=== PATIENT | male | born 1950 | race Caucasian/White ===

== ENCOUNTER 2016-09-04 17:46 | Emergency (ER) | payer OTHER, MEDICARE ==
[~2016-09-04] VITALS: Ht 162.6 cm; Wt 90.7 kg
[~2016-09-04 17:46] MED LIST: CALCIUM 600 +1 EA12 PO; CLONIDINE HCL0.2 M1 PO; CLOTRIMAZOLE/BE1 CRE TOP; DOCU-LIQUI150 MG/15 PO; ECONAZOLE NITRATE11 TOP; FEXOFENADINE HC60 MG PO; KEFLEX500 M1 PO; MELOXICAM7.5 M1 PO; OMEPRAZOLE20 M2 PO; PHENOBARBITAL32.4 M1 PO; PROLIA60 MG/1 ML SC; ZITHROMAX Z-PA250 M1 PO
--- NOTE | 2016-09-04 19:40 | ED MVC/FALL/TRAUMA COMPLAINT ---
History of Present Illness General Chief Complaint: General Adult Stated Complaint: UNSTEADY GAIT;BRUISE ON BACK Source: LEGAL MANAGER Exam Limitations: physical impairment Vital Signs & Intake/Output Vital Signs & Intake/Output Vital Signs Date Time Temp Pulse Resp B/P B/P Pulse O2 O2 Flow FiO2 Mean Ox Delivery Rate 09/04 2126 97 Room Air 09/05 2051 97.2 16 146/83 09/04 1809 98.1 84 22 145/94 Room Air Allergies Coded Allergies: MDX - Haloperidol (From HALDOL) (UNKOWN 04/11/15) MDX - Phenothiazine (PHENOTHIAZINE) (UNKNOWN 04/11/15) Uncoded Allergies: THORAZINE (01/19/15) Reconcile Medications CALCIUM CARBONATE/VITAMIN D3 (Calcium 600 + Vit D Tablet) 600 MG/400 IU TAB 1 TAB PO BID SUPPLEMENT (Reported) Cephalexin (Keflex) 500 MG CAPSULE 1 CAP PO BID CELLULITIS CLONIDINE HCL (Clonidine) 0.2 MG TABLET 1 TAB PO BID UNKNOWN (Reported) CLOTRIMAZOLE/BETAMETHASONE DIP (Clotrimazole-Betamethasone Crm) 1 %-0.05 % CREAM..G. 1 BROOKE TOP BID PRN RED/RASHY AREA (Reported) Denosumab (Prolia) 60 MG/ML SYRINGE 1 ML SC Q 6 MONTHS BONE HEALTH (Reported) Docusate Sodium (Docu-Liquid) 50 MG/5 ML LIQUID CONSTIPATION (Reported) Econazole Nitrate 1 % CREAM..G. 1 BROOKE TOP QPM FEET (Reported) Fexofenadine Hydrochloride (Fexofenadine HCl) 60 MG TAB 1 TAB PO BID UNKNOWN (Reported) Meloxicam 7.5 MG TABLET 1 TAB PO DAILY UNKNOWN (Reported) Omeprazole 20 MG CAPSULE.DR 1 CAP PO DAILY GI (Reported) Phenobarbital 32.4 MG TABLET 1 TAB PO QPM UNKNOWN (Reported) Triage Note: PT IS FROM [facility] PER TIP LENGTH CHECKER PT SLIPPED OUT OF BED A FEW DAYS AGO, HAS BRUISE ON BACK. Triage Nurses Notes Reviewed? yes Onset: Abrupt Duration: constant Timing: recent history Severity: mild Severity Numbers: 1 Injuries/Fall Location: back Method of Injury: direct blow, fall Loss of Consciousness: no loss of consciousness HPI: PATIENT IS A 66-YEAR-OLD MALE WITH PAST MEDICAL HISTORY OF profound intellectual disability, infantile autism whose history is limited due to past medical history which patient lives in a prison in which the qc analyst presents patient to the emergency room for concerns of fall off his bed where they noted the fall was witnessed 2-3 days ago where today they saw the patient has a skin abrasion to the thoracic region of his back. Caregiver Denies any pain patient has normal steady gait No bleeding has occurred No medications given for symptoms. Patient was requested to be evaluated (BRAYAN MEDINA) Past History Travel History Traveled to [place] past 21 day No Medical History Any Pertinent Medical History? 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 No (BRAYAN MEDINA) Review of Systems Review of Systems Constitutional: Reports: no symptoms. Eyes: Reports: no symptoms. Ears, Nose, Throat, Mouth: Reports: no symptoms. Respiratory: Reports: no symptoms. Cardiovascular: Reports: no symptoms. Gastrointestinal/Abdominal: Reports: no symptoms. Genitourinary: Reports: no symptoms. Musculoskeletal: Reports: see HPI, back pain. Skin: Reports: see HPI. Neurological/Psychological: Reports: no symptoms. All Other Systems: Reviewed and Negative (BRAYAN MEDINA) Physical Exam Physical Exam General Appearance: no apparent distress, alert, comfortable Head: atraumatic Eyes: Bilateral: normal appearance. Ears, Nose, Throat, Mouth: moist mucous membrane Neck: normal inspection, supple, full range of motion, no midline tenderness Respiratory: normal breath sounds, chest non-tender Cardiovascular: regular rate/rhythm Back: evidence of trauma Extremities: normal range of motion Neurologic/Psych: awake Skin: intact Diagram Body: 1) Minimal superficial skin abrasion noted no tenderness noted skin intact Core Measures ACS in differential dx? No Severe Sepsis Present: No Septic Shock Present: No (BRAYAN MEDINA) Progress Differential Diagnosis: aoritic dissection, abd injury, C/T/L spine injury, ext injury, ICH, pelvis injury, pnemothorax, spinal cord injury Plan of Care: Orders Procedure Date/time Status XRY-THORACOLUMBAR SPINE 09/04 1958 Active Patient has no concerns of osseous injury where patient shows the skin abrasion. Patient was ambulated on multiple occasions normal steady gait. The caregiver will transport patient back to [facility] (BRAYAN MEDINA) Diagnostic Imaging: Viewed by Me: Radiology Read. Radiology Impression: no fracture Comments: PATIENT: VILMA MCKNIGHT PRESENT AGE: 66 PATIENT ACCOUNT NO: [id number] : 51 LOCATION: [facility] ORDERING PHYSICIAN: BRAYAN GONGORA SERVICE DATE: 09/04/16 EXAM TYPE: RAD - XRY-THORACOLUMBAR SPINE EXAMINATION: XR THORACOLUMBAR SPINE CLINICAL INFORMATION: Fall COMPARISON: None Findings: Frontal film shows the vertebrae from T7 to L5. Significant scoliosis convex right apex at T10. The lateral film is nondiagnostic. No acute finding seen on the frontal study. Impression: Lateral film is nondiagnostic. Recommend patient return for repeat imaging. Scoliosis on the frontal study. No acute finding on the frontal images from T7 to L5. The mid to upper thoracic vertebrae are not imaged here. (BRAYAN MEDINA) Departure Departure Disposition: HOME OR SELF CARE Condition: Stable Clinical Impression Primary Impression: Skin abrasion Secondary Impressions: Thoracic back pain Referrals: RENETTA BRUEC MD (PCP/Family) Additional Instructions: As discussed follow-up with primary care doctor in 1 week Continue home medications. If symptoms worsen return to emergency room Departure Forms: Customer Survey General Discharge Information (BRAYAN MEDINA) PA/JIRA DEVELOPER Co-Sign Statement Statement: ED Attending supervision documentation- [] I saw and evaluated the patient. I have also reviewed all the pertinent lab results and diagnostic results. I agree with the findings and the plan of care as documented in the PA's/JIRA DEVELOPER's documentation. [X] I have reviewed the ED Record and agree with the PA's/JIRA DEVELOPER's documentation. [] Additions or exceptions (if any) to the PAs/JIRA DEVELOPER's note and plan are summarized below: [] (MARV ALVAREZ,CIRA)
[2016-09-04 20:52] VITALS: BP 146/83
--- NOTE | 2016-09-04 21:17 | RADIOLOGY REPORT ---
EXAMINATION: XR THORACOLUMBAR SPINE CLINICAL INFORMATION: Fall COMPARISON: None Findings: Frontal film shows the vertebrae from T7 to L5. Significant scoliosis convex right apex at T10. The lateral film is nondiagnostic. No acute finding seen on the frontal study. Impression: Lateral film is nondiagnostic. Recommend patient return for repeat imaging. Scoliosis on the frontal study. No acute finding on the frontal images from T7 to L5. The mid to upper thoracic vertebrae are not imaged here.
== END 2016-09-04 21:27 ==
LOC: ERH 17:46
DX: S30.810A Abrasion of lower back and pelvis, initial encounter (principal); M54.6 Pain in thoracic spine; W06.XXXA Fall from bed, initial encounter; Y92.199 Unspecified place in other specified residential institution as the place of occurrence of the external cause; Y93.9 Activity, unspecified
CPT/HCPCS: 72080

== ENCOUNTER 2016-10-23 08:49 | Emergency (ER) | payer OTHER, MEDICARE ==
[2016-10-23 08:53] VITALS: BP 143/91
--- NOTE | 2016-10-23 09:03 | ED UPPER/LOWER EXTREMITY COMPL ---
History of Present Illness General Chief Complaint: Hand or Wrist Injury Stated Complaint: SWELLING TO R HAND-NO KNOWN INJURY Source: AID Exam Limitations: MR/AUTISM Vital Signs & Intake/Output Vital Signs & Intake/Output Vital Signs Date Time Temp Pulse Resp B/P B/P Pulse O2 O2 Flow FiO2 Mean Ox Delivery Rate 10/23 0853 98.0 93 20 143/91 96 Room Air Allergies Coded Allergies: Phenothiazines (UNKNOWN 10/23/16) chlorpromazine (From THORAZINE) (UNKNOWN 10/23/16) haloperidol (From HALDOL) (UNKNOWN 10/23/16) Reconcile Medications Calcium Carbonate/Vitamin D3 (Calcium 600 + Vit D Tablet) 600 MG-400 TABLET 1 TAB PO BID SUPPLEMENT (Reported) Cephalexin (Keflex) 500 MG CAPSULE 1 CAP PO BID CELLULITIS Clonidine HCl 0.2 MG TABLET 1 TAB PO BID UNKNOWN (Reported) Denosumab (Prolia) 60 MG/ML SYRINGE 1 ML SC BONE STRENGTH (Reported) Docusate Sodium (Colace) 100 MG CAPSULE 1 CAP PO BID CONSTIPATION (Reported) Levocetirizine Dihydrochloride 5 MG TABLET 1 TAB PO DAILY ALLERGIES (Reported ) Meloxicam 7.5 MG TABLET 1 TAB PO DAILY PAIN (Reported) Omeprazole 20 MG CAPSULE.DR 1 CAP PO 1600 GI (Reported) Phenobarbital 32.4 MG TABLET 1 TAB PO QPM UNKNOWN (Reported) Triage Note: PT TO ED FROM [facility] WITH AIDE. STAFF NOTICED RIGHT HAND WAS SWOLLEN THIS AM. STAFF DENIES ANY INJURY. Triage Nurses Notes Reviewed? yes Onset: Abrupt Duration: constant Timing: single episode today Severity: mild Severity Numbers: 3 HPI: Patient is a 66-year-old male with a past medical history of autism and mental retardation who presents emergency with aid from [facility] for concerns of noticeable right hand swelling today. A denies any mechanism of injury. Denies any fever (BRAYAN MEDINA) Past History Travel History Traveled to [place] past 21 day No Medical History Any Pertinent Medical History? 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 No (BRAYAN MEDINA) Review of Systems Review of Systems Constitutional: Reports: no symptoms. EENTM: Reports: no symptoms. Respiratory: Reports: no symptoms. Cardiovascular: Reports: no symptoms. Gastrointestinal/Abdominal: Reports: no symptoms. Genitourinary: Reports: no symptoms. Musculoskeletal: Reports: see HPI, joint pain. Skin: Reports: no symptoms. Neurological/Psychological: Reports: no symptoms. Hematologic/Endocrine: Reports: no symptoms. Immunological: Reports: no symptoms. All Other Systems: Reviewed and Negative (BRAYAN MEDINA) Physical Exam Physical Exam General Appearance: no apparent distress, alert Head: atraumatic Eyes: Bilateral: normal appearance. Ears, Nose, Throat: hearing grossly normal Neck: normal inspection Peripheral Pulses: 2+ radial (R), 2+ radial (L) Back: normal inspection Neurologic/Tendon: normal sensation, normal motor functions, normal tendon functions, responds to pain, no evidence tendon injury, no pulse deficit Skin: intact Lymphatic: no anterior cervical min Diagram Hands Back 1) Noted localized swelling warmth and mildly erythematous dorsal aspect of hand No fluctuance no induration no discharge (BRAYAN MEDINA) Progress Differential Diagnosis: arterial insufficiency, cellulitis, CHF, compartment syndrome, contusion, dislocation, DVT, fracture, gout, septic arthritis, sprain, tendon injury Plan of Care: Orders Procedure Date/time Status XRY-HAND, 3 View RIGHT 10/23 902 Active Patient on examination has no concerns of DVT and which there no distal phalanges swelling concerns and erythema and swelling is localized to the dorsal aspect of right hand. No concerns of abscess there is mild concerns of cellulitis X-rays were unremarkable for osseous injury. W-10 dictated disposition and plan (BRAYAN MEDINA) Diagnostic Imaging: Viewed by Me: Radiology Read. Radiology Impression: no acute abnormality, no fracture Comments: PATIENT: VILMA MCKNIGHT PRESENT AGE: 66 PATIENT ACCOUNT NO: [id number] : 51 LOCATION: [facility] ORDERING PHYSICIAN: BRAYAN GONGORA SERVICE DATE: 10/23/16 EXAM TYPE: RAD - XRY-HAND, RIGHT EXAMINATION: XR HAND, RIGHT CLINICAL INFORMATION: Pain and swelling. COMPARISON: None TECHNIQUE: AP and lateral views of the right hand and wrist. FINDINGS: Evaluation of the hand is limited, the hand is clenched in a fist. Bone mineral density appears diffusely decreased without evidence of fracture or dislocation. No focal osseous lesions are seen. Degenerative changes are suspected in the IP joints. No definite erosive changes are seen. IMPRESSION: Osteopenia. No fracture or dislocation. DICTATED BY: DULCE PETERS MD DATE/TIME DICTATED:10/23/16925 (BRAYAN MEDINA) Departure Departure Disposition: HOME OR SELF CARE Condition: Stable Clinical Impression Primary Impression: Swelling of right hand Secondary Impressions: Cellulitis of right hand Referrals: RENETTA BRUCE MD (PCP/Family) Additional Instructions: W 10 dictated disposition plan Begin Keflex as directed for the full course begin Naprosyn for inflammation. Return to emergency IF symptoms worsen or if no better in 2 days follow-up with primary care doctor Departure Forms: Customer Survey General Discharge Information (BRAYAN MEDINA) PA/LAPIDARIST Co-Sign Statement Statement: ED Attending supervision documentation- x I saw and evaluated the patient. I have also reviewed all the pertinent lab results and diagnostic results. I agree with the findings and the plan of care as documented in the PA's/LAPIDARIST's documentation. [] I have reviewed the ED Record and agree with the PA's/LAPIDARIST's documentation. [] Additions or exceptions (if any) to the PAs/LAPIDARIST's note and plan are summarized below: [] (MITALI ALVAREZ,CURTIS)
--- NOTE | 2016-10-23 09:33 | RADIOLOGY REPORT ---
EXAMINATION: XR HAND, RIGHT CLINICAL INFORMATION: Pain and swelling. COMPARISON: None TECHNIQUE: AP and lateral views of the right hand and wrist. FINDINGS: Evaluation of the hand is limited, the hand is clenched in a fist. Bone mineral density appears diffusely decreased without evidence of fracture or dislocation. No focal osseous lesions are seen. Degenerative changes are suspected in the IP joints. No definite erosive changes are seen. IMPRESSION: Osteopenia. No fracture or dislocation.
[2016-10-23] MEDS ORDERED: LEVOCETIRIZINE D5 M1 PO (09:35)
[2016-10-23] MEDS ORDERED: COLACE100 M1 PO (09:36)
== END 2016-10-23 09:54 ==
LOC: ERH 08:49
DX: L03.113 Cellulitis of right upper limb (principal)
CPT/HCPCS: 73130-RT